=== PATIENT | female | born 1940 | race Caucasian/White ===

== ENCOUNTER 2017-09-02 12:29 | Outpatient (CLI) | payer MEDICARE, BC ==
[~2017-09-02 12:29] MED LIST: LAMO150T2 PO; LEVO75TA56 PO; LISI-600 PO; VALA10002 PO
== END 2017-09-02 23:59 | disposition home or self-care (01) ==
LOC: CARD DIAG 12:29
PROVIDERS: ATTEND Internal Medicine Cardiovascular Disease
DX: I08.3 Combined rheumatic disorders of mitral, aortic and tricuspid valves (principal)
CPT/HCPCS: 93306